=== PATIENT | female | born 1985 | race Caucasian/White ===

== ENCOUNTER 2019-06-07 10:43 | Emergency (ER) | payer BC ==
[~2019-06-07] VITALS: Wt 89.0 kg
[2019-06-07 10:53] VITALS: BP 115/57; PULSE 78; RESP 18
== END 2019-06-07 14:23 | disposition home or self-care (01) ==
LOC: E/R 10:43
DX: S99.922A Unspecified injury of left foot, initial encounter (principal); X58.XXXA Exposure to other specified factors, initial encounter; Y92.9 Unspecified place or not applicable